=== PATIENT | female | born 1955 | race Two or more races ===

== ENCOUNTER 2021-11-07 07:39 | Outpatient (CLI) | payer OTHER | END 2021-11-07 07:46 | disposition home or self-care (01) | LOC: TOM 07:39 | PROVIDERS: ATTEND Surgery | DX: K57.30 Diverticulosis of large intestine without perforation or abscess without bleeding (principal); K59.09 Other constipation; N81.6 Rectocele; K64.8 Other hemorrhoids ==

== ENCOUNTER 2021-11-20 14:13 | Outpatient (CLI) | payer OTHER | END 2021-11-20 14:24 | disposition home or self-care (01) | LOC: RAD 14:13 | PROVIDERS: ATTEND Surgery | DX: K57.30 Diverticulosis of large intestine without perforation or abscess without bleeding (principal); K59.09 Other constipation; N81.6 Rectocele; K64.8 Other hemorrhoids ==

== ENCOUNTER 2022-01-18 10:13 | Inpatient (IN) | payer OTHER ==
[~2022-01-18] VITALS: Ht 165.1 cm; Wt 88.5 kg
[2022-01-19] MEDS ORDERED: CANDESARTAN CILE8 MG PO (08:28)
[2022-01-22] MEDS ORDERED: BUPROPION XL150 MG (10:05)
[2022-01-22] MEDS ORDERED: HYDROCHLOROTH12.5 MG (10:06)
[2022-01-22] MEDS ORDERED: LACTULOSE10 GM/152 (10:06)
[2022-01-22] MEDS ORDERED: CLONAZEPAM1 MG (10:06)
[2022-01-22] MEDS ORDERED: MONTELUKAST SOD10 MG (10:06)
[2022-01-22] MEDS ORDERED: DICYCLOMINE HCL20 MG (10:06)
[2022-02-01] MEDS ORDERED: PERCOCET 5-3251 EACH PO (16:25)
[2022-02-01] MEDS ORDERED: METRONIDAZOLE500 MG PO (16:26)
[2022-02-01] MEDS ORDERED: CIPRO500 MG PO (16:26)
== END 2022-02-01 18:31 | disposition home or self-care (01) | DRG 330 ==
LOC: SURH 01-22 07:00 → O/R 01-22 09:32 → SURH 01-22 11:21
PROVIDERS: ADMIT Surgery; ATTEND Surgery
PROC: 0DBP4ZZ Excision of Rectum, Percutaneous Endoscopic Approach (ICD-10-PCS; 2022-01-22)
PROC: 0DJD8ZZ Inspection of Lower Intestinal Tract, Via Natural or Artificial Opening Endoscopic (ICD-10-PCS; 2022-01-22)
PROC: 4A12X4Z Monitoring of Cardiac Electrical Activity, External Approach (ICD-10-PCS; 2022-01-22)
PROC: 0DTN4ZZ Resection of Sigmoid Colon, Percutaneous Endoscopic Approach (ICD-10-PCS; principal; 2022-01-22 07:00)
PROC: 02HV33Z Insertion of Infusion Device into Superior Vena Cava, Percutaneous Approach (ICD-10-PCS; 2022-01-24)
PROC: BW21YZZ Computerized Tomography (CT Scan) of Abdomen and Pelvis using Other Contrast (ICD-10-PCS; 2022-01-28)
DX: K57.30 Diverticulosis of large intestine without perforation or abscess without bleeding (principal); K91.89 Other postprocedural complications and disorders of digestive system; K56.7 Ileus, unspecified; A04.72 Enterocolitis due to Clostridium difficile, not specified as recurrent; N81.6 Rectocele; K64.8 Other hemorrhoids; K63.89 Other specified diseases of intestine; K59.02 Outlet dysfunction constipation; Z20.822 Contact with and (suspected) exposure to COVID-19; I11.9 Hypertensive heart disease without heart failure

== ENCOUNTER 2023-01-10 07:37 | Outpatient (CLI) | payer OTHER ==
[~2023-01-10 07:37] MED LIST: BUPROPION XL150 MG; CANDESARTAN CILE8 MG PO; CIPRO500 MG PO; CLONAZEPAM1 MG; DICYCLOMINE HCL20 MG; HYDROCHLOROTH12.5 MG; LACTULOSE10 GM/152; METRONIDAZOLE500 MG PO; MONTELUKAST SOD10 MG; PERCOCET 5-3251 EACH PO
== END 2023-01-10 07:48 | disposition home or self-care (01) ==
LOC: TOM 07:37
PROVIDERS: ATTEND Surgery
DX: K57.30 Diverticulosis of large intestine without perforation or abscess without bleeding (principal); N81.6 Rectocele; K59.02 Outlet dysfunction constipation; R19.5 Other fecal abnormalities; R14.3 Flatulence

== ENCOUNTER 2023-08-22 12:30 | Inpatient (IN) | payer OTHER ==
[~2023-08-22] VITALS: Ht 165.1 cm; Wt 80.7 kg
[2023-08-22] MEDS ORDERED: CANDESARTAN PO (15:42)
[2023-08-26 20:08] LABS: HEMOGLOBIN 12.9 g/dL (12.0-15.00); MEAN CELL VOLUME 90.3 fL (80.00-100.00); MEAN CORPUSCULAR HEMOGLOBIN 31.6 pg (27.00-32.0); PLATELET COUNT 191 K/uL (150-450); RED CELL DISTRIBUTION WIDTH 12.7 % (11.5-14.5)
[2023-08-26 20:27] LABS: ALBUMIN 3.5 gm/dL (3.4-5.0); CREATININE SERUM 0.63 mg/dL (0.55-1.02); GFR 93.69; PHOSPHOROUS 4.2 mg/dL (2.5-4.9); POTASSIUM 4.56 mEq/L (3.5-5.1)
[2023-08-27 05:52] LABS: ALBUMIN 3.3 gm/dL (3.4-5.0); CREATININE SERUM 0.72 mg/dL (0.55-1.02); GFR 80.31; PHOSPHOROUS 3.9 mg/dL (2.5-4.9); POTASSIUM 4.2 mEq/L (3.5-5.1)
[2023-08-27 06:01] LABS: HEMATOCRIT 36.9 % (36.0-45.00); MEAN CELL VOLUME 89.2 fL (80.00-100.00); MEAN CORPUSCULAR HEMOGLOBIN 31.6 pg (27.00-32.0); MEAN CORPUSCULAR HGB CONC 35.4 g/dl (32.0-36.0); PLATELET COUNT 184 K/uL (150-450); RED BLOOD COUNT 4.13 M/uL (4.00-6.00); RED CELL DISTRIBUTION WIDTH 12.5 % (11.5-14.5)
[2023-08-27] MEDS ORDERED: INTESTINEX680 M1 PO (08:06)
[2023-08-27] MEDS ORDERED: KETO10TA2 PO (08:06)
[2023-08-27] MEDS ORDERED: TRAM1TAB98 PO (08:06)
== END 2023-08-27 12:35 | disposition home or self-care (01) | DRG 748 ==
LOC: O/R 08-26 07:52 → SURG 08-26 07:52
PROVIDERS: ADMIT Surgery; ATTEND Surgery
PROC: 3E0T3BZ Introduction of Anesthetic Agent into Peripheral Nerves and Plexi, Percutaneous Approach (ICD-10-PCS; 2023-08-26)
PROC: 0JQC0ZZ Repair Pelvic Region Subcutaneous Tissue and Fascia, Open Approach (ICD-10-PCS; principal; 2023-08-26 20:15)
DX: N81.6 Rectocele (principal); R15.9 Full incontinence of feces; Z20.822 Contact with and (suspected) exposure to COVID-19

== ENCOUNTER 2025-08-23 08:18 | Outpatient (CLI) | payer OTHER ==
[~2025-08-23 08:18] MED LIST changes: +CANDESARTAN PO; +INTESTINEX680 M1 PO; +KETO10TA2 PO; +TRAM1TAB98 PO
== END 2025-08-23 08:20 | disposition home or self-care (01) ==
LOC: SONOGRAMA 08:18
DX: K76.0 Fatty (change of) liver, not elsewhere classified (principal)